=== PATIENT | male | born 2000 | race Asian ===

== ENCOUNTER 2022-07-11 05:05 | Emergency (ER) | payer OTHER, SELFPAY ==
[2022-07-11] MEDS ORDERED: diphenhydrAMINE 50 MG/ML VIAL ONE (05:20)
[2022-07-11] MEDS ORDERED: methylPREDNISolone Sod Succ/PF 125 MG/2 ML VIAL ONE (05:20)
[2022-07-11] MEDS ORDERED: Famotidine/PF 20 mg/2ml Vial ONE (05:29)
[2022-07-11] MEDS ORDERED: Ondansetron PF 4 MG/2 ML Vial ONE (05:29)
== END 2022-07-11 06:45 | disposition home or self-care (01) ==
LOC: BURERS 05:05
DX: T63.421A Toxic effect of venom of ants, accidental (unintentional), initial encounter (principal); F17.200 Nicotine dependence, unspecified, uncomplicated
CPT/HCPCS: 99283; J1200; J2405; J2930; S0028